=== PATIENT | female | born 1970 | race Caucasian/White ===

== ENCOUNTER 2023-08-29 12:30 | Observation (INO) | payer SELFPAY ==
[2023-08-29 13:30] LABS: #Basophils 0.03 10x3/uL (0.0-0.2); %Basophils 0.2 % (0.0-1.0); %Eosinophils 5.3 % (0.0-10.0); %Monocytes 6.8 % (0.0-10.0); %Neutrophils 72.2 % (42.0-75.0); Hematocrit 42.1 % (36.0-47.0); Hemoglobin 14.4 g/dL (12.0-16.0); Mean Corpuscular HGB CONC 34.2 g/dL (32.0-36.0); Mean Corpuscular Hemoglobin 30.8 pg (27.0-31.0); Mean Corpuscular Volume 90.1 fL (78.0-98.0); Mean Platelet Volume 9.7 fL (7.4-10.4); Platelet Count 455 10x3/uL (130-400); RBC Distribution Width 13.6 % (11.5-14.5); Red Blood Cell (RBC) Count 4.67 mill/uL (4.20-5.40)
[2023-08-29] MEDS ORDERED: Albuterol 2.5 MG (0.5 mL) NEB ONE (13:44)
[2023-08-29] MEDS ORDERED: cefTRIAXone (ROCEPHIN) 2 GM VIAL ONE (13:44)
[2023-08-29] MEDS ORDERED: Magnesium 2 GM/50 ML BAG (IN WATER) ONE (13:44)
[2023-08-29] MEDS ORDERED: Ipratropium Bromide 2.5 ml Neb ONE (13:44)
[2023-08-29] MEDS ORDERED: methylPREDNISolone Sod Succ/PF 125 MG/2 ML VIAL ONE (13:45)
[2023-08-29] MEDS ORDERED: Sodium Chloride 0.9% 100 ML ONE (13:45)
[2023-08-29 13:54] LABS: ALT (SGPT) 18 U/L (8-55); AST (SGOT) 16 U/L (5-34); Albumin 3.6 g/dL (3.5-5.0); Alkaline Phosphatase 91 U/L (40-110); Anion Gap 18 mmol/L (10-20); BUN (Urea Nitrogen) 11 mg/dL (9.8-20.1); Bilirubin, Total 1.5 mg/dL (0.2-1.2); Calc. Creatinine Clearance 0 mL/min (70-130); Calcium 10.1 mg/dL (7.8-10.44); Carbon Dioxide 25 mmol/L (22-29); Chloride 103 mmol/L (98-107); Estimated GFR 85; Globulin 4.7 g/dL (2.4-3.5); Glucose 124 mg/dL (70-105); Potassium 4.1 mmol/L (3.5-5.1); Protein, Total 8.3 g/dL (6.0-8.3); Sodium 142 mmol/L (136-145)
[2023-08-29 15:07] LABS: Actual Bicarbonate (HCO3v) 27.5 mEq/L (22-28); Base Excess 2.4 mEq/L (-2.0 to +3.0); Calcium, Ionized (venous) 1.12 mmol/L (1.16-1.32); Chloride (VBG) 98 mmol/L (98-106); Hematocrit-VBG 41 % (36.0-47.0); Hemoglobin (Hb) 14.1 g/dL (11.7-16.0); Potassium (VBG) 4.36 mmol/L (3.70-5.30); Sodium 138 mmol/L (133-146); pH (venous) 7.414 (7.32-7.43)
[2023-08-29] MEDS ORDERED: Aspirin Chewable 81 MG TAB ONE (15:22)
[2023-08-29] MEDS ORDERED: Albuterol 2.5 MG (3 mL) NEB ONE (15:24)
[2023-08-29] MEDS ORDERED: Azithromycin 500 MG VIAL ONE (15:45)
[2023-08-29] MEDS ORDERED: Iopamidol-370 76% 500 ML MDV (1 ML CHARGE) ONE (15:51)
[2023-08-29] MEDS ORDERED: Ipratropium/Albuterol 3 ML NEB NEB PRN (16:01)
[2023-08-29 16:40] LABS: Troponin I Less than 0.010 ng/mL (< 0.028)
[2023-08-29 17:47] VITALS: BMI 31.3
[2023-08-29] MEDS: Ipratropium/Albuterol 3 ML NEB NEB SCH (18:28)
[2023-08-29] MEDS: Acetaminophen 325 MG TAB PO SCH (18:47)
[2023-08-29] MEDS: methylPREDNISolone Sod Succ 40 MG VIAL IVP SCH (18:47)
[2023-08-29 19:37] LABS: Troponin I Less than 0.010 ng/mL (< 0.028)
[2023-08-29] MEDS: Famotidine 20 MG TAB PO SCH (20:11)
[2023-08-29] MEDS: Guaifenesin DM 100-10/5 ML UDCUP PO PRN (20:16)
[2023-08-29] MEDS: hydrOXYzine 25 MG TAB PO SCH (20:24)
[2023-08-29] MEDS: Melatonin 3 MG TAB PO PRN (20:24)
[2023-08-30 05:41] LABS: #Basophils 0.03 10x3/uL (0.0-0.2); %Basophils 0.2 % (0.0-1.0); %Eosinophils 0.4 % (0.0-10.0); %Lymphocytes 9.8 % (21.0-51.0); %Monocytes 2.3 % (0.0-10.0); %Neutrophils 86.5 % (42.0-75.0); Hematocrit 40.4 % (36.0-47.0); Hemoglobin 13.6 g/dL (12.0-16.0); Mean Corpuscular HGB CONC 33.7 g/dL (32.0-36.0); Mean Corpuscular Hemoglobin 30.4 pg (27.0-31.0); Mean Corpuscular Volume 90.2 fL (78.0-98.0); Mean Platelet Volume 9.4 fL (7.4-10.4); Platelet Count 411 10x3/uL (130-400); RBC Distribution Width 13.6 % (11.5-14.5); Red Blood Cell (RBC) Count 4.48 mill/uL (4.20-5.40)
[2023-08-30 06:09] LABS: Anion Gap 16 mmol/L (10-20); BUN (Urea Nitrogen) 14 mg/dL (9.8-20.1); Calc. Creatinine Clearance 110 mL/min (70-130); Calcium 9.8 mg/dL (7.8-10.44); Carbon Dioxide 24 mmol/L (22-29); Chloride 104 mmol/L (98-107); Estimated GFR 92; Glucose 148 mg/dL (70-105); Potassium 4.3 mmol/L (3.5-5.1); Sodium 140 mmol/L (136-145)
[2023-08-30] MEDS: Enoxaparin 40 MG (0.4 mL) SYRINGE SC SCH (08:21)
[2023-08-30] MEDS ORDERED: Budesonide 0.5 MG/2 ML NEB INH SCH (09:57)
[2023-08-30] MEDS: Budesonide 0.5 MG/2 ML NEB INH SCH ×2 (10:51→19:28)
[2023-08-30] MEDS: Montelukast Sodium 10 mg Tablet PO SCH (11:34)
[2023-08-30] MEDS: Losartan 25 MG TAB PO SCH (11:34)
[2023-08-30] MEDS: cefTRIAXone\\ROCEPHIN 1 GM in Sodium Chloride 0.9% 100 ML IVPB SCH (14:49)
[2023-08-30] MEDS: Azithromycin 500 MG in Sodium Chloride 0.9% 250 ML 250 ML IVPB SCH (16:29)
[2023-08-30] MEDS ORDERED: hydrOXYzine 25 MG TAB PO SCH (16:30)
[2023-08-30] MEDS: hydrOXYzine 25 MG TAB PO SCH (17:38)
[2023-08-30] MEDS: Lorazepam 2 MG/ML VIAL SLOW IVP SCH (21:57)
[2023-08-31 04:37] LABS: #Basophils 0.05 10x3/uL (0.0-0.2); #Eosinphils Less than 0.03 10x3/uL (0.0-0.7); %Basophils 0.2 % (0.0-1.0); %Eosinophils 0.1 % (0.0-10.0); %Lymphocytes 6.7 % (21.0-51.0); %Monocytes 2.7 % (0.0-10.0); %Neutrophils 87.3 % (42.0-75.0); Hematocrit 38.3 % (36.0-47.0); Hemoglobin 12.6 g/dL (12.0-16.0); Mean Corpuscular HGB CONC 32.9 g/dL (32.0-36.0); Mean Corpuscular Volume 94.3 fL (78.0-98.0); Mean Platelet Volume 9.4 fL (7.4-10.4); Platelet Count 457 10x3/uL (130-400); RBC Distribution Width 13.7 % (11.5-14.5); Red Blood Cell (RBC) Count 4.06 mill/uL (4.20-5.40)
[2023-08-31 05:10] LABS: Anion Gap 13 mmol/L (10-20); BUN (Urea Nitrogen) 21 mg/dL (9.8-20.1); Calc. Creatinine Clearance 99 mL/min (70-130); Calcium 9.1 mg/dL (7.8-10.44); Carbon Dioxide 25 mmol/L (22-29); Chloride 106 mmol/L (98-107); Estimated GFR 81; Glucose 155 mg/dL (70-105); Potassium 4.1 mmol/L (3.5-5.1); Sodium 140 mmol/L (136-145)
[2023-08-31] MEDS: Losartan 25 MG TAB PO SCH (08:46)
[2023-08-31] MEDS: Montelukast Sodium 10 mg Tablet PO SCH (08:47)
[2023-08-31 09:08] VITALS: BP 154/82; TEMP 98.3
[2023-09-01 15:13] LABS: QuantiFERON-TB Gold Plus Negative (Negative)
[2023-09-05 10:16] LABS: Fungitell Beta (1,3) D-Glucan Negative (.)
== END 2023-08-31 11:48 | disposition home or self-care (01) ==
LOC: ERS 12:30 → 2SW 15:59
PROVIDERS: ADMIT Hospitalist; ATTEND Internal Medicine
DX: J96.01 Acute respiratory failure with hypoxia (principal); J45.901 Unspecified asthma with (acute) exacerbation; I10 Essential (primary) hypertension; F17.210 Nicotine dependence, cigarettes, uncomplicated; Z79.899 Other long term (current) drug therapy; Z79.51 Long term (current) use of inhaled steroids
CPT/HCPCS: 36415; 71045; 71275; 80048; 80053; 82805; 83605; 83880; 84484; 85025; 86480; 87040; 87081; 87449; 87633; 93005; 94640; 96365; 96367; 96372; 96374; 96375; 96376; G0378; J0456; J0696; J1650; J2060; J2920; J2930; J3475; J3490; J7050; J7611; J7620; J7626; Q9967

== ENCOUNTER 2023-12-22 21:46 | Emergency (ER) | payer SELFPAY ==
[2023-12-22] MEDS ORDERED: fentaNYL 50 mcg/mL 1 mL Vial ONE (22:07)
[2023-12-22] MEDS ORDERED: Boostrix 0.5 ML (Tdap) VIAL (>/=7 yrs of age) ONE (22:07)
[2023-12-22] MEDS ORDERED: Lidocaine 1% PF 5 ML VIAL ONE ×2 (22:24→23:15)
[2023-12-23] MEDS ORDERED: Bupivacaine PF 0.5% 30 ML VIAL ONE (00:48)
== END 2023-12-23 01:45 | disposition short-term general hospital (02) ==
LOC: ERS 21:46
DX: S62.636B Displaced fracture of distal phalanx of right little finger, initial encounter for open fracture (principal); I10 Essential (primary) hypertension; J45.909 Unspecified asthma, uncomplicated; F17.210 Nicotine dependence, cigarettes, uncomplicated; W20.8XXA Other cause of strike by thrown, projected or falling object, initial encounter; Y93.89 Activity, other specified; Z79.899 Other long term (current) drug therapy; Z23 Encounter for immunization
CPT/HCPCS: 64450; 90471; 90715; 96374; J0665; J3010

== ENCOUNTER 2024-03-21 23:19 | Emergency (ER) | payer SELFPAY ==
[2024-03-22] MEDS ORDERED: predniSONE 20 MG TAB ONE (03:42)
[2024-03-22] MEDS ORDERED: Orphenadrine Citrate 100 MG ER.TAB ONE (03:42)
[2024-03-22] MEDS ORDERED: Ketorolac Tromethamine 30 MG (1 mL) VIAL ONE (03:48)
== END 2024-03-22 04:16 | disposition home or self-care (01) ==
LOC: ERS 23:19
DX: M79.602 Pain in left arm (principal); M79.601 Pain in right arm; I10 Essential (primary) hypertension; J45.909 Unspecified asthma, uncomplicated; F17.210 Nicotine dependence, cigarettes, uncomplicated; Z79.899 Other long term (current) drug therapy
CPT/HCPCS: 96372; 99282; J1885; J7512